=== PATIENT | female | born 1985 | race Caucasian/White ===

== ENCOUNTER → 2018-01-28 09:19 | Emergency (ER) | payer OTHER ==
--- NOTE | 2018-01-28 10:19 | RAD ---
HISTORY: foot pain, COMPARISONS: None VIEWS: 3, Frontal, lateral, and oblique views of the right ankle FINDINGS: BONE DENSITY: Normal. BONES: There is no displaced fracture. JOINTS: There is no arthropathy. ALIGNMENT: There is no dislocation. SOFT TISSUES: Unremarkable. OTHER FINDINGS: None. IMPRESSION: NO ACUTE OSSEOUS INJURY. IF SYMPTOMS PERSIST, RECOMMEND REPEAT IMAGING.
--- NOTE | 2018-01-28 10:45 | ED ---
Lower Extremity - HPI Summary HPI Summary: Patient is a 32-year-old female presenting to the ED with right foot pain. Endorses pain over the dorsum of the right foot. She states she twisted her ankle at work approximately 1 hour [employer]. She remains ambulatory, but with pain. Dorsiflexion and plantar flexion with pain. Denies any numbness, tingling, color temperature changes. Denies any swelling. - History of Current Complaint Chief Complaint: EDExtremityLower Stated Complaint: RT FOOT PAIN Time Seen by Provider: 01/28/18 09:42 Hx Obtained From: Patient Hx Last Menstrual Period: 04/13/14 Mechanism Of Injury: Twisted Onset of Pain: Minutes Onset/Duration: Minutes Severity Initially: Moderate Severity Currently: Moderate Pain Intensity: 0 Pain Scale Used: 0-10 Numeric Timing: Constant Location: Is Discrete @ - right lateral foot pain Associated Signs And Symptoms: Negative: Swelling, Redness, Bruising Aggravating Factor(s): Standing, Ambulation Alleviating Factor(s): Rest Able to Bear Weight: Yes Related History: Occupational Injury - Risk Factors Gout Risk Factors: Negative DVT Risk Factors: Negative Septic Arthritis Risk Factor: Negative - Allergies/Home Medications Allergies/Adverse Reactions: Allergies Allergy/AdvReac Type Severity Reaction Status Date / Time No Known Allergies Allergy Verified 01/28/18 09:23 Home Medications: Home Medications NK [No Home Medications Reported] 01/28/18 [History Confirmed 01/28/18] PMH/Surg Hx/FS Hx/Imm Hx Previously Healthy: Yes - Surgical History Surgery Procedure, Year, and Place: [facility]. APPENDECTOMY - Immunization History Hx Pertussis Vaccination: No Immunizations Up to Date: Unable to Obtain/Confirm Infectious Disease History: No Infectious Disease History: Denies: Traveled Outside the [place] in Last 30 Days - Social History Occupation: Employed Full-time Lives: With Family Alcohol Use: Occasionally Hx Substance Use: No Substance Use Type: Reports: None Hx Tobacco Use: No Smoking Status (MU): Never Smoked Tobacco Have You Smoked in the Last Year: No Review of Systems Constitutional: Negative Negative: Fever, Chills, Skin Diaphoresis Negative: Shortness Of Breath, Cough Negative: Abdominal Pain, Vomiting Genitourinary: Negative Positive: no symptoms reported, see HPI Positive: Arthralgia - right lateral foot pain Negative: Rash, Bruising Negative: Weakness, Paresthesia, Numbness Psychological: Normal All Other Systems Reviewed And Are Negative: Yes Physical Exam Triage Information Reviewed: Yes Vital Signs On Initial Exam: Initial Vitals Temp Pulse Resp BP Pulse Ox 97.8 F 77 13 137/77 100 01/28/18 09:20 01/28/18 09:20 01/28/18 09:20 01/28/18 09:20 01/28/18 09:20 Vital Signs Reviewed: Yes Appearance: Positive: Well-Appearing, Well-Nourished Skin: Positive: Warm, Skin Color Reflects Adequate Perfusion Head/Face: Positive: Normal Head/Face Inspection Eyes: Positive: EOMI, GABY, Conjunctiva Clear Neck: Positive: Supple, No Lymphadenopathy Respiratory/Lung Sounds: Positive: Clear to Auscultation, Breath Sounds Present Cardiovascular: Positive: RRR, Pulses are Symmetrical in both Upper and Lower Extremities Musculoskeletal: Positive: Pain @ - right lateral side of foot pain Neurological: Positive: Sensory/Motor Intact, Alert, Oriented to Person Place, Time, Speech Normal Psychiatric: Positive: Normal - Wall, Affect/Mood Appropriate AVPU Assessment: Alert Diagnostics - Vital Signs Vital Signs Temp Pulse Resp BP Pulse Ox 01/28/18 09:20 97.8 F 77 13 137/77 100 - Laboratory Lab Statement: Any lab studies that have been ordered have been reviewed, and results considered in the medical decision making process. Lower Extremity Course/Dx - Course Course Of Treatment: During the course of treatment, the patient is evaluated for right sided lateral foot pain. There is no ecchymosis or swelling. No numbness or tingling on light touch. Dorsiflexion and plantar flexion with a mild amount of pain. No swelling noted. Good cap refill. Pulses +2 intact bilaterally. Range of motion intact. No weakness is noted on physical exam. Luigi wrapped. Patient is given precautions for ibuprofen, Luigi bandage, elevation , ice. No given for work 5 days. She voices no concerns at this time. - Diagnoses Provider Diagnoses: Foot sprain Discharge - Sign-Out/Discharge Documenting (check all that apply): Discharge/Admit/Transfer - Discharge Plan Condition: Stable Disposition: HOME Patient Education Materials: Foot Sprain (ED) Forms: *Work Release Referrals: No Primary Care Phys,NOPCP [Primary Care Provider] - Additional Instructions: Ibuprofen 600mg three times daily Ice Elevate keep the area compressed - Billing Disposition and Condition Condition: STABLE Disposition: Home
--- NOTE | 2018-01-28 10:47 | RAD ---
Indication: Dorsal RIGHT foot pain following rolling injury. Comparison: RIGHT ankle of the same date. Technique: AP, lateral, and oblique views RIGHT foot. Report: No cortical disruption or suspicious trabecular irregularity to suggest fracture. Normal articular alignment. Preserved joint spaces. Unremarkable soft tissue contours. IMPRESSION: #. Negative radiographic exam of the RIGHT foot.
[2018-01-28 12:07] VITALS: BP 118/72
== END | disposition home or self-care (01) ==
LOC: ED 09:19
DX: S93.601A Unspecified sprain of right foot, initial encounter (principal); X50.1XXA Overexertion from prolonged static or awkward postures, initial encounter; Y93.9 Activity, unspecified; Y92.9 Unspecified place or not applicable; Y99.0 Civilian activity done for income or pay
CPT/HCPCS: 99281